=== PATIENT | female | born 1965 | race Caucasian/White ===

== ENCOUNTER 2024-06-20 13:21 | Emergency (ER) | payer OTHER ==
[~2024-06-20] VITALS: Ht 165.1 cm; Wt 63.0 kg
[2024-06-20 13:37] VITALS: BP 189/93; PULSE 84; RESP 18; TEMP 97.8
--- NOTE | 2024-06-20 14:06 | ERN ---
ED Note History of Present Illness Stated Complaint: HIGH BLOOD PRESSURE, HEADACHE Chief Complaint: Hypertension Time Seen by MD: 13:25 Time Seen by Midlevel: 13:30 Dictation: 59-year-old female with a history of hypertension coming in with complaints of nasal congestion and left ear congestion. Patient states the 17th she went to her PCP in where they told her she had the flu has been doing better since but recently began to complain of feeling her ears fall. Patient also states she is supposed to be on two blood pressure medications but has not started her 2nd one because the pharmacist told her that her blood pressure dropped too much so she is scared to take it. Patient denies any headache, fever, neck pain, chest pain, chest discomfort, short of breath. Allergies: Coded Allergies: Penicillins (Unverified Allergy, Unknown, 06/20/24) Past Medical History Past Medical History: Hypertension, Hypothyroid Surgical History: None Review of System Dictation Constitutional: Negative for fever,chills, and weight loss Eyes: Negative for injury, pain,redness, and discharge ENT: Negative for injury,pain or swelling complaining of left ear popping and fullness Cardiovascular: Negative for chest pain, palpitations, and edema Respiratory: Negative for shortness of breath, cough, and wheezing, Abdomen/GI: Negative for abdominal pain, nausea, vomiting, diarrhea, and constipation Back: Negative for injury and pain : Negative for injury, bleeding and discharge MS/Extremity: Negative for injury and deformity Skin: Negative for rash, and discoloration Neuro: Negative for headache, weakness, numbness, tingling, and seizure Psych: Negative for suicide ideation, homicidal ideation, and hallucinations Review of Systems: was completed Initial Vital Sign VS Vital Signs Date Time Temp Pulse Resp B/P (MAP) Pulse Ox O2 Delivery O2 Flow Rate FiO2 06/20/24 13:37 97.9 84 18 189/93 100 Room Air 0 Physical Exam Dictation General: awake, alert, NAD Head/Face: Normocephalic, atraumatic Eyes: PERRL, EOMI, vision at baseline ENT: oral cavity clear, TMs clear, unable to visualize left tympanic membrane due to cerumen impaction Neck: Trachea midline, supple, no nuchal rigidity Cardiovascular: RRR, normal S1/S2, No MRGs, no JVD Respiratory: CTAB, no respiratory distress, No rales or wheezes Abdomen: Soft, non-tender, non-distended, normal bowel sounds, no guarding or rebound. Skin: Warm, dry, normal turgor, no rash MS/Extremity: Pulses equal, no cyanosis, neurovascular intact, FROM Neuro: COAx4, GCS 15, strength 5/5, CN 2-12 intact, normal cerebellar exam, normal gait, Psych: Normal behavior, mood, and affect normal ED Course ED Course Vital Signs Date Time Temp Pulse Resp B/P (MAP) Pulse Ox O2 Delivery O2 Flow Rate FiO2 06/20/24 13:37 97.9 84 18 189/93 100 Room Air 0 Medical Decision Making MDM MDM: 59-year-old female with a history of hypertension coming in with complaints of nasal congestion and left ear congestion. Patient states the th she went to her PCP in where they told her she had the flu has been doing better since but recently began to complain of feeling her ears fall. Patient also states she is supposed to be on two blood pressure medications but has not started her 2nd one because the pharmacist told her that her blood pressure dropped too much so she is scared to take it. Patient denies any headache, fever, neck pain, chest pain, chest discomfort, short of breath. Spoke to the patient, stated that her ear congestion could be related to her having nasal congestion and flu- like symptoms for the last couple of days along with her serum impaction. Educated that her elevated blood pressure could be related to her not taking the 2nd dose of medication and also because she is anxious. Educated patient to take [id number] medications like Mucinex or Sudafed and Debrox [id number] to clear out her serum impaction. Educated to follow up with her PCP in 1-2 days and to return to the ER if symptoms worsen. At the time of discharge patient's vital signs have improved. Differential diagnosis: Anxiety, otitis media, serum impaction Rationale: Tests considered and ordered secondary to shared decision making inc lude: Previous outside records reviewed: Old ER visits. Risk of complication and/or morbidity or mortality of patient management: None Medications-Per medication reconciliation Need for hospitalization: Patient does not meet criteria for hospitalization. Need for emergency major/minor surgery: No There are no social concerns with this patient. Prescription drug management Prescriptions will include symptomatic care Patient's prior external medical records from other ER visits were reviewed by me as indicated. Prior testing and results from previous visits were reviewed. Prior tests were taken into account with medical decision making and resource utilization, independent historian/historians were used to obtain complete medical history. I independently interpreted the test that were performed, results were reviewed by me and considered findings on radiology if ordered. Medical management and examination interpretation discussions were had by me with other qualified healthcare professionals as indicated for the patient's care. DX & DISP Disposition: Discharge Departure Impression: Primary Impression: Anxiety Additional Impression: Cerumen impaction Condition: Stable Additional Instructions: Please take [id number] medications for symptoms like Mucinex or Sudafed. By the [id number] Debrox for cerumen impaction. Follow up with PCP in 1-2 days or to return to the ER if symptoms worsen. Referrals: SELF,REFERRAL (PCP) Time of Disposition: 14:05 I have reviewed the case, and I agree with, Diagnosis and Plan BOOGIE OSULLIVAN NP Jun 20, 2024 14:06
--- NOTE | 2024-06-20 15:29 | NUR ---
PT SEARCHED FOR IN THE ER LOBBY,LOBBY RESTROOM,AND INTERNAL WAITING AREA FOR DC INSTRUCTIONS. NO ANSWER.
== END 2024-06-20 15:30 | disposition home or self-care (01) ==
LOC: EDH 13:21
DX: F41.9 Anxiety disorder, unspecified (principal); H61.22 Impacted cerumen, left ear; I10 Essential (primary) hypertension; E03.9 Hypothyroidism, unspecified; Z88.0 Allergy status to penicillin
CPT/HCPCS: 99282